=== PATIENT | female | born 1940 | race Caucasian/White ===

== ENCOUNTER → 2018-02-07 | Outpatient (CLI) | payer MEDICARE ==
[~2018-02-07] MED LIST: ACET325T26 PO; ALBU8.5H8 INH; ALPR0.25 PO; ASPI-496 PO; DIGO250T6 PO; DILT30TA33 PO; ENAL5TAB PO; FLUT16SP2 INH; LOSA25TA2 PO; METO25TA91 PO; MOME13HF2 INH; OMEG-76 PO; RIVA20TA PO; TRAM-47 PO; [UNRECOGNIZED DRUG - REMARK] PO
== END | disposition home or self-care (01) ==
LOC: CFH 08:31
PROVIDERS: ATTEND Internal Medicine Cardiovascular Disease
DX: I11.0 Hypertensive heart disease with heart failure (principal); I50.9 Heart failure, unspecified; I48.2 Chronic atrial fibrillation
CPT/HCPCS: 78452; 93017; A9502

== ENCOUNTER → 2018-02-08 | Outpatient (CLI) | payer MEDICARE ==
[~2018-02-08] MED LIST changes: +REGADENOSON 0.4 MG/5 ML SYRINGE ONE
== END | disposition home or self-care (01) ==
LOC: CFH 08:41
PROVIDERS: ATTEND Internal Medicine Cardiovascular Disease
DX: I08.3 Combined rheumatic disorders of mitral, aortic and tricuspid valves (principal); I11.0 Hypertensive heart disease with heart failure; I50.9 Heart failure, unspecified; I48.2 Chronic atrial fibrillation; Z85.3 Personal history of malignant neoplasm of breast
CPT/HCPCS: 93306; J2785

== ENCOUNTER 2018-02-20 08:49 | Day surgery (SDC) | payer MEDICARE ==
[2018-02-18 08:34] VITALS: BP 141/78
[2018-02-18 09:36] LABS: BASOPHILS # (AUTO) 0.03 x10^3/uL (0-0.1); BASOPHILS % (AUTO) 1 % (0-1); EOSINOPHILS # (AUTO) 0.37 x10^3/uL (0-0.4); EOSINOPHILS % (AUTO) 7 % (1-7); LYMPHOCYTES # (AUTO) 1.31 x10^3/uL (1-3.4); LYMPHOCYTES % (AUTO) 23 % (22-44); MD NO; MEAN CORPUSCULAR HEMOGLOBIN 29.8 pg (27.0-34.8); MEAN CORPUSCULAR HGB CONC 33.1 g/dL (32.4-35.8); MEAN PLATELET VOLUME 8.1 fL (7.4-10.4); MONOCYTES # (AUTO) 0.71 x10^3/uL (0.2-0.8); MONOCYTES % (AUTO) 13 % (2-9); NEUTROPHILS # (AUTO) 3.24 x10^3/uL (1.8-6.8); NEUTROPHILS % (AUTO) 57 % (42-75); PLATELET COUNT 363 x10^3/uL (130-400); RED BLOOD COUNT 4.85 x10^6/uL (3.82-5.3)
[2018-02-18 09:44] LABS: ALANINE AMINOTRANSFERASE 24 U/L (12-78); ALBUMIN 3.6 g/dL (3.4-5.0); ANION GAP 8 mmol/L (5-15); CHLORIDE 109 mmol/L (98-107)
[2018-02-18 09:46] LABS: ALKALINE PHOSPHATASE 86 U/L (45-117); BILIRUBIN,TOTAL 0.5 mg/dL (0.2-1.0); CREATININE 0.89 mg/dL (0.55-1.02)
[~2018-02-20] VITALS: Ht 160 cm; Wt 70.5 kg
[~2018-02-20 08:49] MED LIST changes: -REGADENOSON 0.4 MG/5 ML SYRINGE ONE; +SACU1TAB PO
[2018-02-20] MEDS ORDERED: VITA1CAP PO (09:24)
[2018-02-20] MEDS ORDERED: CETI10CA PO (09:24)
[2018-02-20] MEDS ORDERED: ERGO500017 PO (09:24)
[2018-02-20] MEDS ORDERED: LIDOCAINE 2%, 10ML ONE (10:11)
[2018-02-20] MEDS ORDERED: MIDAZOLAM 1 MG/ML, 2ML ONE (10:11)
[2018-02-20] MEDS ORDERED: FENTANYL PF 100 MCG/2ML ONE (10:11)
[2018-02-20] MEDS ORDERED: NITROGLYCERIN 5 MG/ML, 10ML ONE (10:11)
== END 2018-02-20 14:58 | disposition home or self-care (01) ==
LOC: CACL 08:49
PROVIDERS: ATTEND Internal Medicine Cardiovascular Disease
DX: R94.39 Abnormal result of other cardiovascular function study (principal); F41.9 Anxiety disorder, unspecified; I48.2 Chronic atrial fibrillation; I45.19 Other right bundle-branch block; E78.5 Hyperlipidemia, unspecified; I48.91 Unspecified atrial fibrillation; E78.00 Pure hypercholesterolemia, unspecified; I11.0 Hypertensive heart disease with heart failure; I50.9 Heart failure, unspecified; Z95.0 Presence of cardiac pacemaker; Z88.5 Allergy status to narcotic agent; Z98.890 Other specified postprocedural states
CPT/HCPCS: 36415; 71046; 80053; 85025; 93458; 99156; C1760; C1769; C1894; J2250; J3010; J3490; Q9967; J2001

== ENCOUNTER 2018-05-14 10:25 | Observation (INO) | payer MEDICARE ==
[~2018-05-14] VITALS: Ht 160 cm; Wt 73.4 kg
[~2018-05-14 10:25] MED LIST changes: +CETI10CA PO; +ERGO500017 PO; +VITA1CAP PO
[2018-05-14 11:38] LABS: BASOPHILS # (AUTO) 0.02 x10^3/uL (0-0.1); BASOPHILS % (AUTO) 0 % (0-1); EOSINOPHILS # (AUTO) 0.26 x10^3/uL (0-0.4); EOSINOPHILS % (AUTO) 5 % (1-7); LYMPHOCYTES # (AUTO) 1.38 x10^3/uL (1-3.4); LYMPHOCYTES % (AUTO) 25 % (22-44); MD NO; MEAN CORPUSCULAR HEMOGLOBIN 30.2 pg (27.0-34.8); MEAN CORPUSCULAR HGB CONC 34.1 g/dL (32.4-35.8); MEAN CORPUSCULAR VOLUME 88.6 fL (80-100); MEAN PLATELET VOLUME 8.2 fL (7.4-10.4); MONOCYTES # (AUTO) 0.61 x10^3/uL (0.2-0.8); MONOCYTES % (AUTO) 11 % (2-9); NEUTROPHILS # (AUTO) 3.22 x10^3/uL (1.8-6.8); NEUTROPHILS % (AUTO) 59 % (42-75); PLATELET COUNT 221 x10^3/uL (130-400); RED BLOOD COUNT 4.77 x10^6/uL (3.82-5.3); RED CELL DISTRIBUTION WIDTH 13.4 % (9.6-15.2)
[2018-05-14 11:44] LABS: INTERNATIONAL NORMALIZED RATIO 1.12 (0.93-1.1); PROTHROMBIN TIME 11.8 Seconds (9.6-11.5)
[2018-05-14 11:45] LABS: ALANINE AMINOTRANSFERASE 24 U/L (12-78); ALBUMIN 3.7 g/dL (3.4-5.0); ANION GAP 7 mmol/L (5-15); CALCIUM 9.8 mg/dL (8.5-10.1); CHLORIDE 109 mmol/L (98-107)
[2018-05-14 11:50] LABS: ALKALINE PHOSPHATASE 85 U/L (45-117); BILIRUBIN,TOTAL 0.4 mg/dL (0.2-1.0); CREATININE 0.79 mg/dL (0.55-1.02); TOTAL PROTEIN 6.5 g/dL (6.4-8.2); TROPONIN I < 0.015 ng/mL (0.000-0.045)
[2018-05-14] MEDS ORDERED: CARV6.252 PO (11:55)
[2018-05-14] MEDS ORDERED: ONDANSETRON 2MG/ML, 2ML IVPush PRN (14:30)
[2018-05-14] MEDS ORDERED: morphine SULFATE 10 MG/ML, 1ML IVPush PRN (14:30)
[2018-05-14] MEDS ORDERED: BISACODYL 10 MG SUPP PR PRN (14:30)
[2018-05-14] MEDS ORDERED: ERGOCALCIFEROL 50,000 UNIT CAPSULE PO SCH (14:30)
[2018-05-14] MEDS ORDERED: HEPARIN 5,000 UNITS/ML, 1ML SQ SCH (14:30)
[2018-05-14] MEDS ORDERED: GABAPENTIN 300 MG CAPSULE PO PRN (14:30)
[2018-05-14] MEDS ORDERED: POLYETHYLENE GLYCOL 17 GM PACKET PO PRN (14:30)
[2018-05-14] MEDS ORDERED: hydrALAzine 20 MG/ML, 1ML IVPush PRN (14:30)
[2018-05-14] MEDS ORDERED: ONDANSETRON ODT 4 MG PO PRN (14:30)
[2018-05-14] MEDS ORDERED: PROMETHAZINE 25 MG/ML, 1ML IM PRN (14:30)
[2018-05-14] MEDS ORDERED: LABETALOL 5MG/ML, 20ML IVPush PRN (14:30)
[2018-05-14] MEDS ORDERED: ACETAMINOPHEN 325 MG TABLET PO PRN (14:30)
[2018-05-14] MEDS ORDERED: DOCUSATE 100 MG CAPSULE PO PRN (14:30)
[2018-05-14 14:45] LABS: HEMOGLOBIN A1C 6.1 % (4.2-6.3)
[2018-05-14 14:46] LABS: FREE T4 (FREE THYROXINE) 0.82 ng/dL (0.76-1.46); THYROID STIMULATING HORMONE 2.36 mIU/L (0.358-3.740)
[2018-05-14 15:00] VITALS: BP 150/73
[2018-05-14] MEDS: FUROSEMIDE 20 MG/2 ML IV SCH (15:21)
[2018-05-14 17:25] LABS: MICROSCOPIC NOT IND
[2018-05-14 17:36] LABS: CULTURE INDICATED? NO
[2018-05-14 18:45] VITALS: BP 142/69
[2018-05-15 01:22] VITALS: BP 137/69
[2018-05-15 05:36] LABS: BASOPHILS # (AUTO) 0.02 x10^3/uL (0-0.1); BASOPHILS % (AUTO) 0 % (0-1); EOSINOPHILS # (AUTO) 0.36 x10^3/uL (0-0.4); EOSINOPHILS % (AUTO) 7 % (1-7); LYMPHOCYTES # (AUTO) 1.78 x10^3/uL (1-3.4); LYMPHOCYTES % (AUTO) 35 % (22-44); MD NO; MEAN CORPUSCULAR HGB CONC 33.8 g/dL (32.4-35.8); MEAN CORPUSCULAR VOLUME 88.6 fL (80-100); MEAN PLATELET VOLUME 8.2 fL (7.4-10.4); MONOCYTES # (AUTO) 0.67 x10^3/uL (0.2-0.8); MONOCYTES % (AUTO) 13 % (2-9); NEUTROPHILS # (AUTO) 2.22 x10^3/uL (1.8-6.8); NEUTROPHILS % (AUTO) 44 % (42-75); PLATELET COUNT 204 x10^3/uL (130-400); RED BLOOD COUNT 5.21 x10^6/uL (3.82-5.3); RED CELL DISTRIBUTION WIDTH 13.7 % (9.6-15.2)
[2018-05-15 05:43] LABS: CHLORIDE 107 mmol/L (98-107)
[2018-05-15 05:48] LABS: ALANINE AMINOTRANSFERASE 23 U/L (12-78); ALBUMIN 3.5 g/dL (3.4-5.0); ALKALINE PHOSPHATASE 81 U/L (45-117); ANION GAP 6 mmol/L (5-15); BILIRUBIN,TOTAL 0.6 mg/dL (0.2-1.0); CALCIUM 9.9 mg/dL (8.5-10.1); CHOL/HDL RATIO 4.3; CHOLESTEROL, TOTAL 260 mg/dL (140-239); CREATININE 0.91 mg/dL (0.55-1.02); HDL CHOL % 23 % (28-40); HDL CHOLESTEROL (DIRECT) 61 mg/dL (40-60); LDL CHOLESTEROL,CALCULATED 180 mg/dL (54-169); TOTAL PROTEIN 6.4 g/dL (6.4-8.2); TRIGLYCERIDES 97 mg/dL (50-200); VLDL CHOLESTEROL 19 mg/dL (0-25)
[2018-05-15 08:03] VITALS: BP 113/76
[2018-05-15] MEDS: CARVEDILOL 6.25 MG TABLET PO SCH (09:12)
[2018-05-15] MEDS: RIVAROXABAN 20 MG TABLET PO SCH (09:12)
[2018-05-15] MEDS: MULTIVITS,STRESS FORMULA 1 TABLET PO SCH (09:12)
[2018-05-15] MEDS: FUROSEMIDE 20 MG/2 ML IV SCH (09:12)
[2018-05-15] MEDS: CETIRIZINE 10 MG TABLET PO SCH (09:12)
[2018-05-15] MEDS: FLUTICASONE NASAL SPRAY 16GM NAS SCH (09:16)
[2018-05-15] MEDS: FAMOTIDINE 20 MG TABLET PO SCH ×2 (12:22→22:42)
[2018-05-15 13:25] VITALS: BP 110/71
[2018-05-15 18:45] VITALS: BP 104/68
[2018-05-16 01:08] VITALS: BP 99/64
[2018-05-16] MEDS ORDERED: ASPIRIN 81 MG TABLET EC PO SCH (06:00)
[2018-05-16] MEDS: MULTIVITS,STRESS FORMULA 1 TABLET PO SCH (07:32)
[2018-05-16] MEDS: CARVEDILOL 6.25 MG TABLET PO SCH (07:32)
[2018-05-16] MEDS: CETIRIZINE 10 MG TABLET PO SCH (07:32)
[2018-05-16] MEDS: FAMOTIDINE 20 MG TABLET PO SCH (07:32)
[2018-05-16] MEDS: FUROSEMIDE 20 MG/2 ML IV SCH (07:33)
[2018-05-16] MEDS: FLUTICASONE NASAL SPRAY 16GM NAS SCH (07:33)
[2018-05-16] MEDS: RIVAROXABAN 20 MG TABLET PO SCH (07:33)
[2018-05-16 07:35] VITALS: BP 131/84
[2018-05-16] MEDS ORDERED: FAMO20TA7 PO (11:19)
[2018-05-16] MEDS ORDERED: CETI10TA18 PO (11:19)
[2018-05-16] MEDS ORDERED: LOSA25TA6 PO (11:19)
[2018-05-16] MEDS ORDERED: FURO40TA6 PO (11:19)
[2018-05-16] MEDS ORDERED: POTA20TA6 PO (11:19)
== END 2018-05-16 12:01 | disposition home or self-care (01) ==
LOC: ED 11:49 → EDIP 13:35 → INTOOBSV 13:35 → 4WST 14:58 → DCLOUNGE 05-16 11:45
PROVIDERS: ADMIT Internal Medicine; ATTEND Internal Medicine
DX: R42 Dizziness and giddiness (principal); I48.91 Unspecified atrial fibrillation; E78.5 Hyperlipidemia, unspecified; R06.00 Dyspnea, unspecified; R09.81 Nasal congestion; E04.1 Nontoxic single thyroid nodule; E83.52 Hypercalcemia; I34.1 Nonrheumatic mitral (valve) prolapse; I35.1 Nonrheumatic aortic (valve) insufficiency; Z85.3 Personal history of malignant neoplasm of breast; Z90.11 Acquired absence of right breast and nipple; Z95.0 Presence of cardiac pacemaker
CPT/HCPCS: 36415; 70450; 71045; 80053; 80061; 81003; 82330; 83036; 83735; 83970; 84100; 84439; 84443; 84484; 85025; 85610; 85730; 93005; 93880; 96374; 97116; 97162; 97165; 97530; 99284; G0378; G8978; G8979; G8980; J1940; 99285

== ENCOUNTER → 2018-05-24 | Outpatient (CLI) | payer MEDICARE ==
[~2018-05-24] MED LIST changes: +CARV6.252 PO; +CETI10TA18 PO; +FAMO20TA7 PO; +FURO40TA6 PO; +LOSA25TA25 PO; +POTA20TA6 PO
== END | disposition home or self-care (01) ==
LOC: CFH 12:39
PROVIDERS: ATTEND Otolaryngology Facial Plastic Surgery
DX: J34.1 Cyst and mucocele of nose and nasal sinus (principal); J32.0 Chronic maxillary sinusitis
CPT/HCPCS: 70486

== ENCOUNTER 2019-03-30 12:38 | Emergency (ER) | payer MEDICARE ==
[~2019-03-30] VITALS: Ht 160 cm; Wt 70.7 kg
--- NOTE | 2019-03-30 14:06 | NUR ---
PT TO ED FOR "NEARLY PASSED OUT & SHORTNESS OF BREATH X COUPLE DAYS". PT ON MONITOR. VSS. STATES HER LEGS FEEL VERY HEAVY WHILE AMBULATING. ORTHOS NEGATIVE. PIV ESTB, LABS DRAWN & SENT. CXR AT BS. DAUGHTER AT BS. WILL CTM. CALL LIGHT INREACH.
[2019-03-30 14:09] VITALS: BP 156/56
[2019-03-30 14:09] LABS: BASOPHILS # (AUTO) 0.03 x10^3/uL (0-0.1); BASOPHILS % (AUTO) 0 % (0-1); EOSINOPHILS # (AUTO) 0.28 x10^3/uL (0-0.4); EOSINOPHILS % (AUTO) 4 % (1-7); LYMPHOCYTES # (AUTO) 1.55 x10^3/uL (1-3.4); LYMPHOCYTES % (AUTO) 20 % (22-44); MD NO; MEAN CORPUSCULAR HEMOGLOBIN 30.4 pg (27.0-34.8); MEAN CORPUSCULAR VOLUME 92.3 fL (80-100); MEAN PLATELET VOLUME 7.9 fL (7.4-10.4); MONOCYTES # (AUTO) 0.69 x10^3/uL (0.2-0.8); MONOCYTES % (AUTO) 9 % (2-9); NEUTROPHILS # (AUTO) 5.12 x10^3/uL (1.8-6.8); NEUTROPHILS % (AUTO) 67 % (42-75); PLATELET COUNT 251 x10^3/uL (130-400); RED BLOOD COUNT 5.38 x10^6/uL (3.82-5.3); RED CELL DISTRIBUTION WIDTH 12.7 % (9.6-15.2)
[2019-03-30 14:19] LABS: ALBUMIN 4.6 g/dL (3.4-5.0); ANION GAP 6 mmol/L (5-15); CALCIUM 11.1 mg/dL (8.5-10.1); CHLORIDE 106 mmol/L (98-107)
[2019-03-30 14:26] LABS: CREATININE 0.94 mg/dL (0.55-1.02); TROPONIN I < 0.015 ng/mL (0.000-0.045)
--- NOTE | 2019-03-30 15:00 | NUR ---
AMBULATORY TO RESTROOM C STEADY GAIT
== END 2019-03-30 15:38 | disposition home or self-care (01) ==
LOC: ED 15:00
DX: R06.00 Dyspnea, unspecified (principal); R42 Dizziness and giddiness; I48.91 Unspecified atrial fibrillation; E78.5 Hyperlipidemia, unspecified; I50.9 Heart failure, unspecified; Z85.9 Personal history of malignant neoplasm, unspecified; Z95.0 Presence of cardiac pacemaker
CPT/HCPCS: 36415; 71045; 80048; 82040; 83880; 84484; 85025; 93005; 99284

== ENCOUNTER 2019-10-21 06:00 | Day surgery (SDC) | payer MEDICARE ==
[~2019-10-21] VITALS: Ht 160 cm; Wt 67.0 kg
[2019-10-21] MEDS ORDERED: SODIUM CHLORIDE 0.9% 1,000 ML IV SCH (06:27)
[2019-10-21] MEDS ORDERED: 5-HY100C3 PO (06:33)
[2019-10-21] MEDS ORDERED: MONT10TA11 PO (06:33)
[2019-10-21] MEDS ORDERED: CETI10CA PO (06:33)
[2019-10-21] MEDS ORDERED: FURO-93 PO (06:37)
[2019-10-21] MEDS ORDERED: POTA10TA5 PO (06:37)
[2019-10-21] MEDS ORDERED: IPRA15SP NS (06:37)
[2019-10-21 07:04] LABS: BASOPHILS # (AUTO) 0.02 x10^3/uL (0-0.1); BASOPHILS % (AUTO) 0 % (0-1); EOSINOPHILS # (AUTO) 0.64 x10^3/uL (0-0.4); EOSINOPHILS % (AUTO) 13 % (1-7); LYMPHOCYTES # (AUTO) 1.37 x10^3/uL (1-3.4); LYMPHOCYTES % (AUTO) 27 % (22-44); MD NO; MEAN CORPUSCULAR HEMOGLOBIN 30.7 pg (27.0-34.8); MEAN CORPUSCULAR HGB CONC 33.4 g/dL (32.4-35.8); MEAN PLATELET VOLUME 7.9 fL (7.4-10.4); MONOCYTES % (AUTO) 12 % (2-9); NEUTROPHILS # (AUTO) 2.47 x10^3/uL (1.8-6.8); NEUTROPHILS % (AUTO) 49 % (42-75); PLATELET COUNT 227 x10^3/uL (130-400); RED BLOOD COUNT 4.59 x10^6/uL (3.82-5.3); RED CELL DISTRIBUTION WIDTH 12.5 % (9.6-15.2)
[2019-10-21 07:14] LABS: ANION GAP 6 mmol/L (5-15); CHLORIDE 110 mmol/L (98-107); CREATININE 0.75 mg/dL (0.55-1.02)
[2019-10-21] MEDS ORDERED: FENTANYL PF 100 MCG/2ML ONE (07:26)
[2019-10-21] MEDS ORDERED: LIDOCAINE 1%, 20ML ONE (07:26)
[2019-10-21] MEDS ORDERED: MIDAZOLAM 1 MG/ML, 5ML ONE (07:26)
[2019-10-21] MEDS ORDERED: CEFAZOLIN PMX 1GM/50ML 50 ML ONE (07:26)
[2019-10-21] MEDS ORDERED: CEFAZOLIN 1,000 MG ONE (07:26)
[2019-10-21] MEDS ORDERED: IPRATROPIUM BROMIDE NS SCH (09:00)
[2019-10-21] MEDS ORDERED: TEMPLATE NON-FORMULARY MED. (Vitamin B Complex** 1 TAB) PO SCH (09:00)
[2019-10-21] MEDS ORDERED: FUROSEMIDE 20 MG TABLET PO SCH (09:00)
[2019-10-21] MEDS ORDERED: MONTELUKAST 10 MG TABLET PO SCH (09:00)
[2019-10-21] MEDS ORDERED: SODIUM CHLORIDE FLUSH 10ML SYR IVF SCH (09:00)
[2019-10-21] MEDS ORDERED: TEMPLATE NON-FORMULARY MED. (Cetirizine Hcl** (Zyrtec**) 10 MG) PO SCH (09:00)
[2019-10-21] MEDS ORDERED: POTASSIUM CHLORIDE 10 MEQ TABLET.ER PO SCH (09:00)
[2019-10-21] MEDS ORDERED: RIVAROXABAN 20 MG TABLET PO SCH (09:00)
[2019-10-21] MEDS ORDERED: HOLD MEDICATION MC PRN (09:00)
[2019-10-21] MEDS ORDERED: HYDROXYTRYPTOPHAN 100 MG PO SCH (09:00)
== END 2019-10-21 11:00 | disposition home or self-care (01) ==
LOC: CACL 06:00
PROVIDERS: ATTEND Internal Medicine Cardiovascular Disease
DX: Z45.010 Encounter for checking and testing of cardiac pacemaker pulse generator [battery] (principal); I44.2 Atrioventricular block, complete; I48.20 Chronic atrial fibrillation, unspecified; I50.9 Heart failure, unspecified; F41.9 Anxiety disorder, unspecified; E78.5 Hyperlipidemia, unspecified; Z79.01 Long term (current) use of anticoagulants; Z79.899 Other long term (current) drug therapy; Z88.5 Allergy status to narcotic agent; Z85.3 Personal history of malignant neoplasm of breast; Z98.890 Other specified postprocedural states
CPT/HCPCS: 33228; 36415; 71046; 80048; 85025; 99156; C1785; J0690; J2250; J3010